=== PATIENT | female | born 1965 | race Caucasian/White ===

== ENCOUNTER 2021-02-06 16:43 | Emergency (ER) | payer OTHER, SELFPAY ==
--- NOTE | ~2021-02-06 | XR_ITS ---
XR knee RT min 4V DATE: 02/06/2021 17:20 INDICATION: Pain and swelling for one month. 2018 injury. TECHNIQUE: 4 views COMPARISON: None FINDINGS: There is mild periarticular spurring at all 3 compartments consistent with tricompartment o steoarthritis. There is distention of the suprapatellar bursa consistent with mild to moderate joint effusion. No fracture, dislocation, periosteal reaction or bone destruction, radiopaque intra-articular loose b siva or chondrocalcinosis is detected. IMPRESSION: Mild tricompartment osteoarthritis Joint effusion Reviewed, dictated and finalized at location A.
[2021-02-06 16:58] VITALS: BP 100/79; PULSE 88; RESP 16; TEMP 36.8; O2SAT 99
[2021-02-06 17:42] VITALS: BP 123/79; PULSE 91; RESP 18; TEMP 36.8; O2SAT 100
--- NOTE | 2021-02-06 17:48 | ED.EXTPRO ---
HPI - Extremity Problem General Chief complaint: Extremity Problem,Nontraumatic Stated complaint: knee pain x 1 month Time Seen by Provider: 02/06/21 17:17 Source: patient Mode of arrival: ambulatory Limitations: no limitations History of Present Illness HPI Narrative: Patient is a 55-year-old female who presents complaining of right knee pain x1 month. She reports increased swelling over the past few weeks. Denies known injury. She denies history of DVT. She denies taking [id number] medications for pain at this time. Patient denies significant medical history. MD Complaint: joint paint (Right knee) Related Data Home Medications Medication Instructions Recorded Confirmed sertraline mg 02/06/21 simvastatin mg 02/06/21 02/06/21 Allergies Allergy/AdvReac Type Severity Reaction Status Date / Time No Known Allergies Allergy Verified 02/06/21 17:41 Review of Systems Review of Systems: Narrative: CONSTITUTIONAL: Denies fever, chills, or sweats. EYES: Denies visual changes, redness, or discharge. ENT: Denies rhinorrhea, congestion, sore throat, or otalgia. CARDIOVASCULAR: Denies chest pain, palpitations, or edema. RESPIRATORY: Denies cough or dyspnea. GASTROINTESTINAL: Denies abdominal pain, nausea, vomiting, or diarrhea. GENITOURINARY: Denies dysuria or hematuria. SKIN: Denies rash or itching. MUSCULOSKELETAL: Reports right knee pain and swelling NEUROLOGIC: Denies headache, numbness, dizziness, or weakness. PSYCHIATRIC: Denies anxiety or depression. [facility] Past Medical History Medical History Depression Elevated cholesterol Surgical History Surgical History No significant past surgical history Social History Social History Smoking status: Current every day smoker Tobacco type: cigarettes Alcohol intake: never Substance use: never Living arrangements: with family Gender identity (if verbalized by the patient): Female Comments At the time of signature, I have reviewed and agree with nursing past medical, surgical, social, and family history unless otherwise noted. Please see nursing chart for further information. There is no relevant family history pertinent to the presenting complaint. Exam Narrative: Exam Narrative: GENERAL: Well-appearing, well-nourished, and in no acute distress. HEAD: Normocephalic, atraumatic. EYES: EOMI. No redness or drainage. Conjunctiva are normal. ENT: Mucous membranes pink and moist. CHEST: No respiratory distress. Clear to auscultation. HEART: Regular rate and rhythm. EXTREMITIES: Mild edema to right knee, tenderness with palpation. No erythema or warmth noted. No dependent swelling. Distal sensation intact, good capillary refill. Bilateral calves equal in size. SKIN: Warm, dry, no rash. NEURO: No focal deficits. Alert and oriented x3. Gait steady. PSYCH: Normal affect. No signs of depression or anxiety. Course Vital Signs Vital signs: Vital Signs Temperature 36.8 C 02/06/21 16:58 Pulse Rate 88 02/06/21 16:58 Respiratory Rate 16 02/06/21 16:58 Blood Pressure 100/79 02/06/21 16:58 Pulse Oximetry 99 02/06/21 16:58 Temperature 36.8 C 02/06/21 17:42 Pulse Rate 91 02/06/21 17:42 Respiratory Rate 18 02/06/21 17:42 Blood Pressure 123/79 02/06/21 17:42 Pulse Oximetry 100 02/06/21 17:42 Reviewed MDM - Extremity (Nontraumatic) MDM Narrative Medical decision making narrative: Patient's x-ray shows moderate osteoarthritis. Discussed with patient most likely cause of tenderness, difficulty ambulating and mild swelling. Patient started on NSAIDs at this time as she reports they are not contraindicated. Andrés wrap for comfort, discussed use of topical creams for pain relief. Ortho follow-up given. Patient to follow-up with PCP in 3 to 5 days if symptoms per
[2021-02-06 18:20] VITALS: BP 115/86; PULSE 78; RESP 16; TEMP 36.8; O2SAT 99
== END 2021-02-06 18:20 | disposition home or self-care (01) ==
PROVIDERS: Emergency Provider Nurse Practitioner; PCP Physician Assistant
DX: M17.11 Unilateral primary osteoarthritis, right knee (principal); F32.9 Major depressive disorder, single episode, unspecified; E78.00 Pure hypercholesterolemia, unspecified; F17.210 Nicotine dependence, cigarettes, uncomplicated
CPT/HCPCS: 73564; 99283